=== PATIENT | female | born 1995 | race Caucasian/White ===

== ENCOUNTER 2020-08-18 17:11 | Emergency (ER) | payer MEDICAID ==
[~2020-08-18] VITALS: Ht 170.2 cm; Wt 56.7 kg
[2020-08-18 17:32] VITALS: BP_SYST 107
[2020-08-18 17:50] VITALS: BP_SYST 107
== END 2020-08-18 17:50 | disposition home or self-care (01) ==
LOC: SED 17:11
DX: L03.116 Cellulitis of left lower limb (principal)
CPT/HCPCS: 99283

== ENCOUNTER 2022-12-13 20:03 | Emergency (ER) | payer MEDICAID ==
[~2022-12-13] VITALS: Ht 160 cm; Wt 68.0 kg
[2022-12-13 20:10] VITALS: BP_SYST 127
[2022-12-13] MEDS ORDERED: CEPH-548 PO (21:07)
[2022-12-13] MEDS ORDERED: cephALEXin 500 MG CAPSULE PO ONE (21:15)
[2022-12-13 21:23] VITALS: BP_SYST 127
== END 2022-12-13 21:22 | disposition home or self-care (01) ==
LOC: SED 20:03
DX: L03.116 Cellulitis of left lower limb (principal)
CPT/HCPCS: 99283

== ENCOUNTER 2023-08-13 22:41 | Emergency (ER) | payer MEDICAID ==
[~2023-08-13] VITALS: Ht 162.6 cm; Wt 65.8 kg
[~2023-08-13 22:41] MED LIST: CEPH-548 PO
[2023-08-13 22:45] VITALS: BP_SYST 135; PULSE 80; RESP 17; TEMP 98; O2SAT 98
[2023-08-14] MEDS ORDERED: NAPR-1172 PO (02:18)
== END 2023-08-14 02:22 | disposition home or self-care (01) ==
LOC: SED 22:41
DX: S93.401A Sprain of unspecified ligament of right ankle, initial encounter (principal); Z79.899 Other long term (current) drug therapy; X58.XXXA Exposure to other specified factors, initial encounter; Y93.01 Activity, walking, marching and hiking; Y92.89 Other specified places as the place of occurrence of the external cause; Y99.8 Other external cause status
CPT/HCPCS: 73700-TC; 76376; 99284